=== PATIENT | female | born 1965 | race Caucasian/White ===

== ENCOUNTER 2017-08-03 11:04 | Day surgery (SDC) | payer OTHER ==
[~2017-08-03] VITALS: Ht 160 cm; Wt 104.8 kg
--- NOTE | ~2017-08-03 | OP ---
PATIENT NAME: BELLA CARDONA MEDICAL RECORD: [id number] :63 LOCATION:D.OPS ADMISSION DATE: SURGEON: CECELIA DENNEY MD DATE OF OPERATION: 08/03/2017 PREOPERATIVE DIAGNOSIS: De Quervain stenosing tenosynovitis of the left wrist. POSTOPERATIVE DIAGNOSIS: De Quervain stenosing tenosynovitis of the left wrist. PROCEDURE: De Quervain's release of the left wrist. SURGEON: Cecelia Denney MD ANESTHESIA: General. INTRAOPERATIVE COMPLICATIONS: None. SUMMARY OF PATHOLOGIC FINDINGS: The patient has extensive tenosynovitis seen under the extensor retinaculum. OPERATIVE SUMMARY IN DETAIL: After obtaining the appropriate preoperative orthopedic surgery consent as well as anesthetic consultation, evaluation, and clearance, the patient was brought to the operating room and placed on the operating table in supine position. After adequate general laryngeal mask was administered, tourniquet was placed about the proximal aspect of the left upper extremity. Left upper extremity was prepped and draped in routine sterile fashion. The arm was elevated and exsanguinated and tourniquet inflated to 250 mmHg. An incision was made directly over the radial styloid. Superficial branch of radial nerve was identified and retracted. Dissection was then carried down to the retinaculum, which was incised in line with the extensor tendon. The extensor tendons was evaluated, synovitis was gently removed. The wound was then copiously irrigated and closed with 4-0 Prolene in running fashion. The area was locally infiltrated with 0.25% Marcaine plain. Sterile dressings were applied. The patient was awakened and taken to recovery in stable condition. All final sponge and needle counts were correct. TRANSINT:[id number] Voice Confirmation ID: [id number] DOCUMENT ID: [id number] CECELIA DENNEY MD at 1504 CC: [id number] DICTATION DATE: 08/03/17 1348 MALT HOUSE OPERATOR: 08/03/17 1430 [facility] 08/03/17 [id number] [place] [address]
[~2017-08-03 11:04] MED LIST: VITAMIN C1000 MG PO; VITAMIN D31000 UNI2 PO
[2017-08-03 11:45] LABS: HEMATOCRIT 44.4 % (36.0-48.0); HEMOGLOBIN 14.8 g/dL (12-16); MCH 31.9 pg (26.0-34.0); MCHC 33.3 g/dL (31.0-37.0); MCV 95.7 fL (80.0-100.0); MEAN PLATELET VOLUME 10.5 fL (7.4-10.4); RBC 4.64 10x6/uL (4.00-5.40); RDW 13.6 % (11.5-14.5)
[2017-08-03 11:46] VITALS: BP 133/81; Ht 160 cm; Wt 104.8 kg
[2017-08-03] MEDS ORDERED: DILAUDID2 MG PO (13:34)
== END 2017-08-03 15:00 | disposition home or self-care (01) ==
LOC: D.OPS 11:04 → D.PAN 12:15 → D.OPS 15:00
PROVIDERS: Anesthesiology
DX: M65.4 Radial styloid tenosynovitis [de Quervain] (principal); Z01.812 Encounter for preprocedural laboratory examination

== ENCOUNTER 2019-07-22 10:25 | Day surgery (SDC) | payer MEDICARE ==
[2019-07-19 12:59] LABS: HEMATOCRIT 43.4 % (36.0-48.0); HEMOGLOBIN 14.6 g/dL (12-16); MCH 31.8 pg (26.0-34.0); MCHC 33.6 g/dL (31.0-37.0); MCV 94.6 fL (80.0-100.0); MEAN PLATELET VOLUME 10.2 fL (7.4-10.4); RBC 4.59 10x6/uL (4.00-5.40); RDW 13.3 % (11.5-14.5); WBC 10.9 10x3/uL (4.8-10.8)
[~2019-07-22] VITALS: Ht 162.6 cm; Wt 95.3 kg
[~2019-07-22 10:25] MED LIST changes: +DILAUDID2 MG PO
[2019-07-22 10:59] VITALS: BP 137/99; Ht 162.6 cm; Wt 95.3 kg
[2019-07-22] MEDS ORDERED: DILAUDID2 MG PO (14:35)
--- NOTE | 2019-07-25 10:27 | OP ---
PATIENT NAME: BELLA CARDONA MEDICAL RECORD: [id number] :63 LOCATION:D.OPS ADMISSION DATE: SURGEON: CECELIA DENNEY MD DATE OF OPERATION: 07/22/2019 PREOPERATIVE DIAGNOSIS: Recurrent de Quervain stenosing tenosynovitis of the left wrist. POSTOPERATIVE DIAGNOSIS: Recurrent de Quervain stenosing tenosynovitis of the left wrist. PROCEDURE: De Quervain's release of the left wrist. SURGEON: Cecelia Denney MD KICKING MACHINE OPERATOR: JOSE F Cerda INTRAOPERATIVE COMPLICATIONS: None. SUMMARY OF PATHOLOGIC FINDINGS: The patient was indeed found to have a recurrent radiostyloid tenosynovitis consistent with the preoperative radiographs. OPERATIVE SUMMARY IN DETAIL: After obtaining the appropriate preoperative orthopedic surgery consent as well as anesthetic consultation, evaluation and clearance, the patient was brought to the operating room and placed on the operating table in supine position. After general laryngeal mask airway was administered, tourniquet was placed on the proximal aspect of the left upper extremity. Left upper extremity was then prepped and draped in routine sterile fashion. Routine preoperative timeout was taken and agreed upon by all. The arm was elevated and exsanguinated, tourniquet inflated to 350 mmHg. An incision was made directly over the radiostyloid in line with the previous incision, taken down to the level of the radiostyloid, retracting the radial nerve. The radiostyloid was then incised over the extensor tendon sheath. Mild amount of synovitis was found. However, the radial sheath was very tight. This was incised in its entirety. All synovitis was excised. Wound was then copiously irrigated and closed by JOSE F Cerda using 2-0 Vicryl followed by 4-0 Prolene. Sterile dressings were applied. Tourniquet was deflated. The patient was awakened and taken to the recovery room in stable condition. All final needle and sponge counts were correct. TRANSINT:[id number] Voice Confirmation ID: [id number] DOCUMENT ID: [id number] CECELIA DENNYE MD at 1027 CC: [id number] DICTATION DATE: 07/22/19 1438 BALLOON SANDER: 07/22/19 1754 [facility] 07/22/19 [facility] [address] [place] [address]
== END 2019-07-22 16:50 | disposition home or self-care (01) ==
LOC: D.OPS 10:25 → D.PAN 12:15 → D.OPS 12:50
PROVIDERS: Anesthesiology; ATTEND Orthopaedic Surgery
DX: M65.4 Radial styloid tenosynovitis [de Quervain] (principal)

== ENCOUNTER → 2019-08-13 14:26 | Outpatient (CLI) | payer MEDICARE ==
[2019-07-22 10:59] VITALS: BMI 36.1
== END | disposition home or self-care (01) ==
LOC: D.MRI 14:26
PROVIDERS: ATTEND Orthopaedic Surgery
DX: M66.869 Spontaneous rupture of other tendons, unspecified lower leg (principal)

== ENCOUNTER 2019-11-20 05:33 | Day surgery (SDC) | payer MEDICARE ==
[~2019-11-20] VITALS: Ht 160 cm; Wt 79.4 kg
--- NOTE | ~2019-11-20 | OP ---
PATIENT NAME: BELLA CARDONA MEDICAL RECORD: [id number] :63 LOCATION:D.OPS ADMISSION DATE: SURGEON: FAMILIA HERNANDEZ DPM DATE OF OPERATION: 11/20/2019 PREOPERATIVE DIAGNOSES: 1. Right posterior calcaneal spur. 2. Disruption of Achilles tendon, right. POSTOPERATIVE DIAGNOSES: 1. Right posterior calcaneal spur. 2. Disruption of Achilles tendon, right. PROCEDURES: 1. Right gastroc recession. 2. Right calcaneal spur removal. 3. Right Achilles tendon repair. ANESTHESIA: Preoperative popliteal block per the anesthesia department. HEMOSTASIS: Right thigh tourniquet at 350 mmHg. PREOPERATIVE DETAILS: The patient was taken to the OR. Following induction of general anesthesia, the patient was placed in the operating table in a prone position. The right extremity was then prepped and draped in usual aseptic technique followed by exsanguination and inflation of tourniquet. PROCEDURE #1: Gastroc recession, right leg. A 15-blade was used to create a 3.5 to 4 cm linear incision over the posterior gastroc aponeurosis. The incision was deepened down bluntly through subcutaneous tissue being sure to avoid the sural nerve and vein. Dissection was carried down to the peritenon where an incision was made and the aponeurosis was exposed. With the foot in dorsiflexion, a V-cut was made through the aponeurosis allowing adequate dorsiflexion of the ankle. At this time, the deep tissue was reapproximated with 2-0 Vicryl and the skin was closed with skin ragini. PROCEDURE #2: Removal of calcaneal spur, right posterior heel. A 4 cm to 5 cm linear incision was made over the posterior aspect of the right calcaneus. The incision was deepened down through subcutaneous tissue to the Achilles tendon. Incision was made through the peritenon and exposed the Achilles tendon. There was noted to be disruption of the lateral aspect of the Achilles tendon with significant spurring and intratendinous calcifications. A 15-blade was used to reflect the Achilles tendon and detached completely from the calcaneus. A sagittal saw was then used to resect the significant spurring on the posterior aspect of the calcaneus. A rasp was used to smooth the area and the wound was flushed. PROCEDURE #3: Repair of the Achilles tendon utilizing the suture bridge technique with 4 anchors in the calcaneus. Excellent repair was made to reattach the Achilles tendon. The repair was tested with dorsiflexion of the ankle, which showed excellent repair of the Achilles tendon. Wound was flushed. The peritenon was repaired with 2-0 Vicryl, the subcutaneous tissue with 4-0 Rapide and skin was closed with 4-0 Rapide in a subcuticular technique followed by Dermabond. Adaptic, 4 x 4 and Conform were used to dress the wounds followed by application of a modified Patino compression dressing. The tourniquet was OPERATIVE REPORT [id number] BELLA CARDONA deflated. POSTOPERATIVE DETAILS: The patient tolerated the procedure well and left the OR with vital signs stable and vascular status at preoperative levels. The patient was transported to recovery per anesthesia in stable condition. TRANSINT:[id number] Voice Confirmation ID: [id number] DOCUMENT ID: [id number] FAMILIA HERNANDEZ DPM CC: [id number] DICTATION DATE: 11/20/19 1007 HEALTH SAFETY INSTRUCTOR: 11/20/19 1136 [facility] [address] [id number]
[2019-11-20 06:11] LABS: HEMATOCRIT 44.3 % (36.0-48.0); HEMOGLOBIN 14.7 g/dL (12-16); MCH 31.7 pg (26.0-34.0); MCHC 33.2 g/dL (31.0-37.0); MCV 95.5 fL (80.0-100.0); MEAN PLATELET VOLUME 10.7 fL (7.4-10.4); RBC 4.64 10x6/uL (4.00-5.40); RDW 13.6 % (11.5-14.5); WBC 8.6 10x3/uL (4.8-10.8)
[2019-11-20] MEDS ORDERED: ASCORBIC ACID500 MG PO (06:18)
[2019-11-20] MEDS ORDERED: VITAMIN D1000 UNI1 PO (06:19)
[2019-11-20 06:35] VITALS: BP 132/80; Ht 160 cm; Wt 79.4 kg
--- NOTE | 2019-11-20 11:02 | NUR ---
FULL LIQUID TRAY TO ROOM.VSS PAIN 3/10
--- NOTE | 2019-11-20 14:43 | NUR ---
1115-REMOVED IV WITH CATH INTACT,DISPOSED INTO SHARPS,COVERED WITH GUAZE,SECURED WITH MEDIPORE TAPE.
--- NOTE | 2019-11-20 14:45 | NUR ---
1125-REVIEWED POST OPERATIVE INSTRUCTIONS AND FOLLOW UP APPOINTMENT. PT WILL CALL DR HERNANDEZ TO CONFIRM NEXT WEEK'S FOLLOW UP. VERBALIZED UNDERSTANDING. VERY PLEASANT. DRESSING CDI. CAP REFILL WNL. VSS.
--- NOTE | 2019-11-20 14:47 | NUR ---
1130-ESCORTED OUT VIA W/C WITH SPOUSE AWAITING TO DRIVE HOME
== END 2019-11-20 11:30 | disposition home or self-care (01) ==
LOC: D.OPS 05:33 → D.PAN 07:45 → D.OPS 11:30
PROVIDERS: Anesthesiology; ATTEND Podiatrist
DX: M77.31 Calcaneal spur, right foot (principal); M76.61 Achilles tendinitis, right leg

== ENCOUNTER → 2020-01-27 08:12 | Outpatient (CLI) | payer MEDICARE ==
[2019-11-20 06:35] VITALS: BMI 31.0
[~2020-01-27 08:12] MED LIST changes: +ASCORBIC ACID500 MG PO; +VITAMIN D1000 UNI1 PO
== END | disposition home or self-care (01) ==
LOC: D.MRI 08:12
PROVIDERS: ATTEND Orthopaedic Surgery
DX: S83.231A Complex tear of medial meniscus, current injury, right knee, initial encounter (principal)